=== PATIENT | male | born 1965 | race African-American/Black ===

== ENCOUNTER 2017-12-26 17:24 | Emergency (ER) | payer SELFPAY ==
[2017-12-26] MEDS ORDERED: Ketorolac Tromethamine 30 MG/ML VIAL ONE (19:49)
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
== END 2017-12-26 20:46 | disposition home or self-care (01) ==
LOC: ERS 17:24
DX: M62.838 Other muscle spasm (principal); V49.9XXA Car occupant (driver) (passenger) injured in unspecified traffic accident, initial encounter
CPT/HCPCS: 72040; 96372; J1885